=== PATIENT | male | born 1970 | race Two or more races ===

== ENCOUNTER 2021-09-25 11:00 | Outpatient (CLI) | payer OTHER | END 2021-09-25 11:09 | disposition home or self-care (01) | LOC: LAB 11:00 | PROVIDERS: ATTEND Surgery | DX: Z01.810 Encounter for preprocedural cardiovascular examination (principal); Z11.52 Encounter for screening for COVID-19 ==

== ENCOUNTER 2021-09-29 07:00 | Day surgery (SDC) | payer OTHER ==
[2021-09-29] MEDS ORDERED: TAMS0.4C PO (16:14)
[2021-09-29] MEDS ORDERED: PERCOCET 5-3251 EACH PO (16:15)
== END 2021-09-29 18:15 | disposition home or self-care (01) ==
LOC: CIR.AMB 07:00
PROVIDERS: ATTEND Surgery
DX: N20.1 Calculus of ureter (principal); I10 Essential (primary) hypertension